=== PATIENT | female | born 1950 | race Caucasian/White ===

== ENCOUNTER 2023-11-21 09:44 | Emergency (ER) | payer MEDICARE, OTHER ==
[2023-11-21] MEDS ORDERED: Sodium Chloride 0.9% 10 ML Syringe FLUSH PRN (10:19)
[2023-11-21 10:31] LABS: BASOPHILS PERCENT AUTO 0.2 % (0.0-1.0); EOSINOPHILS PERCENT AUTO 1.4 % (1.0-3.0); HEMATOCRIT 43.4 % (37.0-47.0); HEMOGLOBIN 14.2 g/dL (12.0-16.0); LYMPHOCYTES PERCENT AUTO 33.7 % (20.5-50.1); MEAN CORPUSCULAR HEMOGLOBIN 29.5 pg (27.0-34.0); MEAN CORPUSCULAR HGB CONC 32.7 g/dL (33.0-35.0); MEAN CORPUSCULAR VOLUME 90.2 fL (80-100); MONOCYTES PERCENT AUTO 9.1 % (2-8); NEUTROPHILS PERCENT AUTO 55.6 % (42.2-75.2); PLATELET COUNT,PLT 258 10^3/uL (150-450); RED BLOOD CELL COUNT 4.81 10^6/uL (4.2-5.4); WHITE BLOOD CELL COUNT,WBC 5.1 10^3/uL (5.0-10.0)
[2023-11-21 10:47] LABS: PROTHROMBIN TIME 10.3 SEC (9.0-12.0)
[2023-11-21 10:52] LABS: A/G RATIO 0.8; ALBUMIN 3.4 g/dL (3.4-5.0); BILIRUBIN TOTAL 0.4 mg/dL (0.2-1.0); CALCIUM 9.1 mg/dL (8.5-10.1); CREATININE 0.93 mg/dL (0.55-1.02); EST CRCL DRUG DOSING (CG) 55.16 mL/min; PROTEIN TOTAL,TP 7.6 g/dL (6.4-8.2)
== END 2023-11-21 11:13 | disposition home or self-care (01) ==
LOC: DL.ED 09:44
DX: K29.01 Acute gastritis with bleeding (principal); Z91.048 Other nonmedicinal substance allergy status; Z88.1 Allergy status to other antibiotic agents; Z88.0 Allergy status to penicillin; Z91.041 Radiographic dye allergy status; Z88.2 Allergy status to sulfonamides; Z79.899 Other long term (current) drug therapy
CPT/HCPCS: 36415; 80053; 85025; 85610; 99284